=== PATIENT | female | born 1960 | race Two or more races ===

== ENCOUNTER 2018-05-18 17:11 | Emergency (ER) | payer OTHER ==
[~2018-05-18] VITALS: Ht 154.9 cm; Wt 72.6 kg
[2018-05-18 17:23] VITALS: BP 160/98
[2018-05-18] MEDS ORDERED: KETOROLAC TROMETH 60MG/2ML VIAL IM ONE (18:00)
[2018-05-18] MEDS ORDERED: DEXAMETHASONE SOD PHOS 10MG/1ML VIAL INJ IM ONE (18:00)
== END 2018-05-18 19:20 | disposition home or self-care (01) ==
LOC: ER 17:11 → EDBD 17:11 → ER 19:20
DX: T21.02XA Burn of unspecified degree of abdominal wall, initial encounter (principal); Z91.041 Radiographic dye allergy status; W22.11XA Striking against or struck by driver side automobile airbag, initial encounter; Y93.89 Activity, other specified; Y99.8 Other external cause status; Y92.89 Other specified places as the place of occurrence of the external cause
CPT/HCPCS: 76700; 96372; 99284; J1100; J1885